=== PATIENT | female | born 1995 | race African-American/Black ===

== ENCOUNTER 2017-05-25 18:53 | Emergency (ER) | payer BC ==
[2017-05-25 19:02] VITALS: BMI 42.9
--- NOTE | 2017-05-25 19:47 | PDOC ---
History of Present Illness - History of Present Illness Initial Comments: 05/25/17 19:43 21F psh of migraines and 11month ago presents to the ED after [place] of headache[place] 1800 [place]. Now complains of minor frontal headache. No vertigo. no fever Not on any meds, was drinking water before event but notice increased thirst and micturition recently. 05/26/17 00:06 <Jair Guzmán - Last Filed: 05/26/17 00:32> <Artem Barron - Last Filed: 05/26/17 01:46> - General Chief Complaint: Headache Stated Complaint: LIGHTHEADED Time Seen by Provider: 05/25/17 19:29 Past History - Past Medical History Asthma: No Cancer: No Cardiac Disorders: No Diabetes: No HTN: No Suicide Attempt (Hx): No Seizures: No Thyroid Disease: No Other medical history: none - Reproductive History (#): 1 Para: 0 Cervical CA: No Dysfunctional Uterine Bleeding: No Ectopic : No Endometrial CA: No Polycystic Ovaries: No Therapeutic (s) & number: No Tubal Ligation: No Spontaneous : 0 - Immunization History Immunization Up to Date: Yes - Psycho/Social/Smoking Cessation Hx Anxiety: No Suicidal Ideation: No Smoking Status: No Smoking History: Never smoked Have you smoked in the past 12 months: No Number of Cigarettes Smoked Daily: 0 Information on smoking cessation initiated: No Hx Alcohol Use: No Drug/Substance Use Hx: No Substance Use Type: None Hx Substance Use Treatment: No <Jair Guzmán - Last Filed: 05/26/17 00:32> <Artem Barron - Last Filed: 05/26/17 01:46> - Past Medical History Allergies/Adverse Reactions: Allergies Allergy/AdvReac Type Severity Reaction Status Date / Time No Known Allergies Allergy Verified 11/15/16 14:14 Home Medications: Ambulatory Orders NK [No Known Home Medication] 05/25/17 *Physical Exam - Vital Signs Last Vital Signs Temp Pulse Resp BP Pulse Ox 98.4 F 75 18 123/90 98 05/25/17 19:00 05/25/17 19:00 05/25/17 19:00 05/25/17 19:00 05/25/17 19:00 <Jair Guzmán - Last Filed: 05/26/17 00:32> - Vital Signs Last Vital Signs Temp Pulse Resp BP Pulse Ox 98.1 F 70 17 122/74 98 05/26/17 00:41 05/26/17 00:41 05/26/17 00:41 05/26/17 00:41 05/26/17 00:41 <Artem Barron - Last Filed: 05/26/17 01:46> ED Treatment Course - LABORATORY CBC & Chemistry Diagram: 05/25/17 20:10 05/25/17 20:19 <Jair Guzmán - Last Filed: 05/26/17 00:32> - LABORATORY CBC & Chemistry Diagram: 05/25/17 20:10 05/25/17 20:19 - ADDITIONAL ORDERS Additional order review: Laboratory Results 05/25/17 05/25/17 05/25/17 20:56 20:19 20:19 Sodium 135 L Potassium 4.1 Chloride 105 Carbon Dioxide 23 Anion Gap 7 L BUN 12 Creatinine 0.7 Creat Clearance w eGFR > 60 Random Glucose 83 Calcium 9.0 Total Bilirubin 0.5 AST 13 L ALT 15 Alkaline Phosphatase 88 Total Protein 6.9 Albumin 3.4 Beta HCG, Quant 34630.1 Urine Color Urine Appearance Urine pH Ur Specific [place] Urine Protein Urine Glucose (UA) Urine Ketones Urine Blood Urine Nitrite Urine Bilirubin Urine Urobilinogen Ur Leukocyte Esterase Urine HCG, Qual Positive 05/25/17 20:10 Sodium Potassium Chloride Carbon Dioxide Anion Gap BUN Creatinine Creat Clearance w eGFR Random Glucose Calcium Total Bilirubin AST ALT Alkaline Phosphatase Total Protein Albumin Beta HCG, Quant Urine Color Ltyellow Urine Appearance Clear Urine pH 6.0 Ur Specific [place] 1.020 Urine Protein Negative Urine Glucose (UA) Negative Urine Ketones Negative Urine Blood Negative Urine Nitrite Negative Urine Bilirubin Negative Urine Urobilinogen 2.0 e.u/dl H Ur Leukocyte Esterase Negative Urine HCG, Qual 05/25/17 20:10 RBC 4.15 MCV 87.7 MCHC 33.2 RDW 13.6 MPV 7.6 Neutrophils % 59.8 D Lymphocytes % 32.0 D Monocytes % 6.1 Eosinophils % 1.7 Basophils % 0.4 - RADIOLOGY Radiology Studies Ordered: Category Date Time Status TRANSVAGINAL US PREG [US] Routine Ultrasound 05/25/17 Taken - Medications Given in the ED: ED Medications Discontinued Medications Generic Name Dose Route Start Last Admin Trade Name Freq PRN Reason Stop Dose Admin Acetaminophen 1,000 mg 05/25/17 20:42 05/25/17 20:56 Tylenol - PO 05/25/17 20:43 1,000 mg ONCE ONE Administration Sodium Chloride 1,000 mls @ 1,000 mls/hr 05/25/17 20:44 05/25/17 20:56 Normal Saline - IV 05/25/17 21:43 1,000 mls/hr ASDIR STA Administration <Artem Barron - Last Filed: 05/26/17 01:46> Medical Decision Making - Medical Decision Making 05/26/17 00:07 21F psh of migraines and 11month ago presents to the ED after episode of headache,[place] 1800 [place]. Differential: subarachnoid bleed, pseudotumor cerebri and migraines. 05/26/17 00:10 Patient was given tylenol for headache and 1L bolus and found to be 6w HR 168 by urine hcg, confirmed by B-HCG pelvis U/S then transvaginal u /s. 05/26/17 00:12 05/26/17 00:32 We do not suspect subarachnoid hemorrhage at this time. Patient told to follow up with Ophtalmology and neurology on saturday. multivitamin ordered. 05/26/17 00:34 <Jair Guzmán - Last Filed: 05/26/17 00:32> *DC/Admit/Observation/Transfer - Discharge Dispostion Admit: No <Jair Guzmán - Last Filed: 05/26/17 00:32> <Artem Barron - Last Filed: 05/26/17 01:46> Diagnosis at time of Disposition: Qualifiers: Weeks of gestation: less than 8 weeks Qualified Code(s): Z3A.01 - Less than 8 weeks gestation of Headache Qualifiers: Headache type: unspecified Headache chronicity pattern: episodic headache Intractability: not intractable Qualified Code(s): R51 - Headache - Discharge Dispostion Disposition: HOME Condition at time of disposition: Stable - Referrals Referrals: Mariusz Henderson MD [Staff Physician] - Jay Peacock MD [Staff Physician] - - Patient Instructions Printed Discharge Instructions: DI for Headache
[2017-05-25 20:27] LABS: URINE APPEARANCE CLEAR; URINE BILIRUBIN NEGATIVE (NEGATIVE); URINE BLOOD NEGATIVE (NEGATIVE); URINE COLOR LTYELLOW; URINE GLUCOSE (UA) NEGATIVE (NEGATIVE); URINE KETONE NEGATIVE (NEGATIVE); URINE LEUK ESTERASE NEGATIVE (NEGATIVE); URINE NITRITE NEGATIVE (NEGATIVE); URINE PROTEIN NEGATIVE (NEGATIVE); URINE UROBILINOGEN 2.0 E.U/dl E.U./dl (0.2-1.0)
[2017-05-25 20:28] LABS: BASOPHIL 0.4 % (0-2.0); EOSINOPHIL 1.7 % (0-4.5); MCH 29.1 pg (25.7-33.7); MCHC 33.2 g/dl (32.0-36.0); MEAN CELL VOLUME 87.7 fl (80-96); MEAN PLT VOLUME 7.6 fl (7.5-11.1); NEUTROPHILS 59.8 % (42.8-82.8); PLATELET COUNT 293 K/MM3 (134-434); RDW 13.6 % (11.6-15.6); WHITE BLOOD COUNT 7.4 K/mm3 (4.0-10.0)
[2017-05-25] MEDS ORDERED: ACETAMINOPHEN 500 MG TABLET (FP) PO ONE (20:42)
[2017-05-25] MEDS ORDERED: SODIUM CHLORIDE 1,000 ML IV STA (20:44)
[2017-05-25 20:49] LABS: ALBUMIN 3.4 g/dl (3.4-5.0); ALK PHOS 88 U/L (45-117); ANION GAP 7 (8-16); BILIRUBIN,TOTAL 0.5 mg/dL (0.2-1.0); CO2 23 mmol/L (21-32); CREATININE 0.7 mg/dL (0.55-1.02); GLUCOSE,RANDOM 83 mg/dL (74-106); SGOT/AST 13 U/L (15-37); SGPT/ALT 15 U/L (12-78); TOT PROT 6.9 g/dl (6.4-8.2)
[2017-05-25] MEDS ORDERED: ACETAMINOPHEN 500 MG TABLET (FP) ONE (20:51)
[2017-05-26 00:42] VITALS: BP 122/74; PULSE 70; TEMP 98.1
--- NOTE | 2017-05-26 01:41 | PDOC ---
Attending Attestation - Resident Resident Name: Jair Guzmán - ED Attending Attestation I have performed the following: I have examined & evaluated the patient, The case was reviewed & discussed with the resident, I agree w/resident's findings & plan, Exceptions are as noted - HPI HPI: 05/26/17 01:38 21-year-old female with history of migraines presents to the ER with a pressure- like headache for the past 7 days,, localized to the forehead and frontal sinuses, with intermittent blurry vision and lightheadedness on the day of arrival. Patient denies the current symptoms are worse headache of her life. She denies fever/chills/nausea/vomiting/focal weakness or paresthesias of extremities. Patient does not recall her last menstrual period. - Physicial Exam PE: 05/26/17 01:39 In the ER, patient is awake and alert, morbidly obese, in no distress. Serial neurological exams reveal no focal deficits. Evaluation of the optic disks reveal no papilledema. Cranial nerves II through XII are grossly intact; motor is 5 of 54; there is no pronation drift; gait is stable. - Medical Decision Making 05/26/17 01:39 Patient is a 21-year-old female who presents with a mild pressure-like frontal headache and lightheadedness as well as visual changes for the past week. In the ER, patient is without focal neurological deficits and normal funduscopic examination. I do not suspect subarachnoid hemorrhage at this time pseudotumor cerebri is in differential at this time. Patient did not wish to undergo lumbar puncture radiological evaluation the ER. Patient's noted to be UCG positive with a beta hCG of 14,000 and a transvaginal ultrasound revealing an IUP with a yolk sac consistent with 6 weeks gestation. Will discharge with neurology and ophthalmology follow-up further evaluation treatment as well as [employer] for further care.
--- NOTE | 2017-05-26 01:47 | PDOC ---
*Physical Exam - Vital Signs Last Vital Signs Temp Pulse Resp BP Pulse Ox 98.1 F 70 17 122/74 98 05/26/17 00:41 05/26/17 00:41 05/26/17 00:41 05/26/17 00:41 05/26/17 00:41 - Physical Exam General Appearance: Yes: Nourished, Mild Distress, Obese HEENT: positive: EOMI EDILSON ED Treatment Course - LABORATORY CBC & Chemistry Diagram: 05/25/17 20:10 05/25/17 20:19 - ADDITIONAL ORDERS Additional order review: Laboratory Results 05/25/17 05/25/17 05/25/17 20:56 20:19 20:19 Sodium 135 L Potassium 4.1 Chloride 105 Carbon Dioxide 23 Anion Gap 7 L BUN 12 Creatinine 0.7 Creat Clearance w eGFR > 60 Random Glucose 83 Calcium 9.0 Total Bilirubin 0.5 AST 13 L ALT 15 Alkaline Phosphatase 88 Total Protein 6.9 Albumin 3.4 Beta HCG, Quant 31572.1 Urine Color Urine Appearance Urine pH Ur Specific [place] Urine Protein Urine Glucose (UA) Urine Ketones Urine Blood Urine Nitrite Urine Bilirubin Urine Urobilinogen Ur Leukocyte Esterase Urine HCG, Qual Positive 05/25/17 20:10 Sodium Potassium Chloride Carbon Dioxide Anion Gap BUN Creatinine Creat Clearance w eGFR Random Glucose Calcium Total Bilirubin AST ALT Alkaline Phosphatase Total Protein Albumin Beta HCG, Quant Urine Color Ltyellow Urine Appearance Clear Urine pH 6.0 Ur Specific [place] 1.020 Urine Protein Negative Urine Glucose (UA) Negative Urine Ketones Negative Urine Blood Negative Urine Nitrite Negative Urine Bilirubin Negative Urine Urobilinogen 2.0 e.u/dl H Ur Leukocyte Esterase Negative Urine HCG, Qual 05/25/17 20:10 RBC 4.15 MCV 87.7 MCHC 33.2 RDW 13.6 MPV 7.6 Neutrophils % 59.8 D Lymphocytes % 32.0 D Monocytes % 6.1 Eosinophils % 1.7 Basophils % 0.4 - RADIOLOGY Radiology Studies Ordered: Category Date Time Status PELVIC / BLADDER US [US] Stat Ultrasound 05/25/17 20:41 Taken - Medications Given in the ED: ED Medications Discontinued Medications Generic Name Dose Route Start Last Admin Trade Name Freq PRN Reason Stop Dose Admin Acetaminophen 1,000 mg 05/25/17 20:42 05/25/17 20:56 Tylenol - PO 05/25/17 20:43 1,000 mg ONCE ONE Administration Sodium Chloride 1,000 mls @ 1,000 mls/hr 05/25/17 20:44 05/25/17 20:56 Normal Saline - IV 05/25/17 21:43 1,000 mls/hr ASDIR STA Administration *DC/Admit/Observation/Transfer Diagnosis at time of Disposition: Qualifiers: Weeks of gestation: less than 8 weeks Qualified Code(s): Z3A.01 - Less than 8 weeks gestation of Headache Qualifiers: Headache type: unspecified Headache chronicity pattern: episodic headache Intractability: not intractable Qualified Code(s): R51 - Headache - Discharge Dispostion Disposition: HOME Condition at time of disposition: Good - Referrals Referrals: Mariusz Henderson MD [Staff Physician] - Jay Peacock MD [Staff Physician] - - Patient Instructions Printed Discharge Instructions: DI for Headache - Post Discharge Activity
[2017-05-26] MEDS ORDERED: PRENATAL VITAMINS W/ FOLIC ACID TABLET (FP) PO SCH (10:00)
--- NOTE | 2017-05-27 13:49 | EKG ---
Test Reason : Blood Pressure : / mmHG Vent. Rate : 079 BPM Atrial Rate : 079 BPM P-R Int : 152 ms QRS Dur : 082 ms QT Int : 344 ms P-R-T Axes : 042 019 021 degrees QTc Int : 394 ms NORMAL SINUS RHYTHM NORMAL ECG WHEN COMPARED WITH ECG OF 02-OCT-2010 22:43, NO SIGNIFICANT CHANGE WAS FOUND Confirmed by RICHMOND GRANT MD ([id number]) on 05/27/2017 1:49:43 PM Referred By: Confirmed By:RICHMOND GRANT MD
== END 2017-05-26 01:45 | disposition home or self-care (01) ==
LOC: JER 18:53
PROC: 3E0337Z Introduction of Electrolytic and Water Balance Substance into Peripheral Vein, Percutaneous Approach (ICD-10-PCS; principal; 2017-05-25)
DX: O26.891 Other specified pregnancy related conditions, first trimester (principal); R51 Headache; Z3A.08 8 weeks gestation of pregnancy
CPT/HCPCS: 36415; 76817-TC; 76856-TC; 80053; 81003; 84702; 84703; 85025; 93005; 93010; 99285-25

== ENCOUNTER 2017-07-29 16:50 | Emergency (ER) | payer BC ==
[2017-07-29 16:56] VITALS: TEMP 98; BMI 41.1
--- NOTE | 2017-07-29 17:52 | PDOC ---
History of Present Illness - General Chief Complaint: Pain Stated Complaint: HEADACHE Time Seen by Provider: 07/29/17 17:51 Past History - Past Medical History Allergies/Adverse Reactions: Allergies Allergy/AdvReac Type Severity Reaction Status Date / Time No Known Allergies Allergy Verified 07/29/17 16:57 Home Medications: Ambulatory Orders NK [No Known Home Medication] 05/25/17 Asthma: No Cancer: No Cardiac Disorders: No Diabetes: No HTN: No Suicide Attempt (Hx): No Seizures: No Thyroid Disease: No - Reproductive History Is Patient Now?: Yes (#): 2 Para: 1 Cervical CA: No Dysfunctional Uterine Bleeding: No Ectopic : No Endometrial CA: No Polycystic Ovaries: No Therapeutic (s) & number: No Tubal Ligation: No Spontaneous : 0 - Immunization History Immunization Up to Date: Yes - Psycho/Social/Smoking Cessation Hx Anxiety: No Suicidal Ideation: No Smoking Status: No Smoking History: Never smoked Have you smoked in the past 12 months: No Number of Cigarettes Smoked Daily: 0 Information on smoking cessation initiated: No Hx Alcohol Use: No Drug/Substance Use Hx: No Substance Use Type: None Hx Substance Use Treatment: No *Physical Exam - Vital Signs Last Vital Signs Temp Pulse Resp BP Pulse Ox 98 F 108 H 18 123/89 99 07/29/17 16:51 07/29/17 16:51 07/29/17 16:51 07/29/17 16:51 07/29/17 16:51
[2017-07-29 17:55] LABS: URINE APPEARANCE CLEAR; URINE BILIRUBIN NEGATIVE (NEGATIVE); URINE BLOOD NEGATIVE (NEGATIVE); URINE COLOR LT. YELLOW; URINE GLUCOSE (UA) NEGATIVE (NEGATIVE); URINE KETONE TRACE (NEGATIVE); URINE NITRITE NEGATIVE (NEGATIVE); URINE UROBILINOGEN 4.0 E.U/dl mg/dL (0.2-1.0)
[2017-07-29 17:57] LABS: BASOPHIL 0.7 % (0-2.0); EOSINOPHIL 2.7 % (0-4.5); MCH 30.2 pg (25.7-33.7); MEAN CELL VOLUME 88.8 fl (80-96); MEAN PLT VOLUME 7.5 fl (7.5-11.1); NEUTROPHILS 63.5 % (42.8-82.8); PLATELET COUNT 282 K/MM3 (134-434); RDW 13.5 % (11.6-15.6); WHITE BLOOD COUNT 5.8 K/mm3 (4.0-10.0)
[2017-07-29 18:14] LABS: URINE PROTEIN 1+ (NEGATIVE)
[2017-07-29 18:22] LABS: URINE BACTERIA RARE /hpf (NONE SEEN); URINE MUCUS FEW; URINE RBC 3 /hpf (0-3); URINE WBC 6 /hpf (3-5); YEAST RARE
[2017-07-29 18:26] LABS: ANION GAP 10 (8-16); BILIRUBIN,TOTAL 0.4 mg/dL (0.2-1.0); CALCIUM 8.6 mg/dL (8.5-10.1); CO2 23 mmol/L (21-32); CREATININE 0.5 mg/dL (0.55-1.02); GLUCOSE,RANDOM 84 mg/dL (74-106); SGOT/AST 12 U/L (15-37); SGPT/ALT 18 U/L (12-78); TOT PROT 6.6 g/dl (6.4-8.2)
[2017-07-29 18:41] LABS: ALK PHOS 70 U/L (45-117)
[2017-07-29] MEDS ORDERED: SODIUM CHLORIDE 1,000 ML IV STA (19:38)
--- NOTE | 2017-07-29 20:06 | PDOC ---
History of Present Illness - General Chief Complaint: Pain Stated Complaint: HEADACHE Time Seen by Provider: 07/29/17 17:51 History Source: Patient - History of Present Illness Initial Comments: 07/29/17 19:39 22-year-old female complaining of suprapubic pain for 3 days and headache for several days. Patient currently . LMP the 03/2017. Patient denies vaginal bleeding, vaginal discharge, urinary symptoms, flank pain. Patient reports drinking inadequate amount of water at times due to the busy work and family life. Patient denies nausea vomiting diarrhea, fever, chest pain, vision changes discussed Past History - Past Medical History Allergies/Adverse Reactions: Allergies Allergy/AdvReac Type Severity Reaction Status Date / Time No Known Allergies Allergy Verified 07/29/17 16:57 Home Medications: Ambulatory Orders Amoxicillin - [Amoxicillin 875mg Tablet -] 875 mg PO BID #20 tab 07/29/17 Vit Calc,Iron,Folic [ Vitamins] 1 each PO DAILY #60 tablet 10/04 Asthma: No Cancer: No Cardiac Disorders: No Diabetes: No HTN: No Suicide Attempt (Hx): No Seizures: No Thyroid Disease: No - Surgical History Other Surgical History: 07/29/17 20:06 1 year ago - Reproductive History Is Patient Now?: Yes (#): 2 Para: 1 Cervical CA: No Dysfunctional Uterine Bleeding: No Ectopic : No Endometrial CA: No Polycystic Ovaries: No Therapeutic (s) & number: No Tubal Ligation: No Spontaneous : 0 - Immunization History Immunization Up to Date: Yes - Psycho/Social/Smoking Cessation Hx Anxiety: No Suicidal Ideation: No Smoking Status: No Smoking History: Never smoked Have you smoked in the past 12 months: No Number of Cigarettes Smoked Daily: 0 Information on smoking cessation initiated: No Hx Alcohol Use: No Drug/Substance Use Hx: No Substance Use Type: None Hx Substance Use Treatment: No Review of Systems - Review of Systems Able to Perform ROS?: Yes Is the patient limited Lao proficient: No Constitutional: No: Symptoms Reported, See HPI, Chills, Diaphoresis, Fever, Loss of Appetite, Malaise, Night Sweats, Weakness, Weight Stable, Unintentional Wgt. Loss, Unexplained wgt Loss, Other ABD/GI: Yes: Other (suprapubic pain) : No: Symptoms Reported, See HPI, Burning, Dysuria, Discharge, Frequency (ip fracture), Flank Pain, Hematuria, Incontinence, Pain, Urgency, Testicular Mass, Testicular Swelling, Lesions, Testicular Pain, Other Neurological: Yes: Headache (. Leg) *Physical Exam - Vital Signs Last Vital Signs Temp Pulse Resp BP Pulse Ox 98 F 108 H 18 123/89 99 07/29/17 16:51 07/29/17 16:51 07/29/17 16:51 07/29/17 16:51 07/29/17 16:51 - Physical Exam General Appearance: Yes: Appropriately Dressed Respiratory/Chest: positive: Lungs Clear, Normal Breath Sounds Cardiovascular: positive: Regular Rhythm, Regular Rate Female Pelvic Exam: positive: normal external exam Gastrointestinal/Abdominal: positive: Normal Bowel Sounds, Soft, Other ( suprapubic tenderness) Musculoskeletal: positive: Normal Inspection Extremity: positive: Normal Capillary Refill, Normal Inspection, Normal Range of Motion Integumentary: positive: Normal Color, Dry, Warm Neurologic: positive: Fully Oriented, Alert, Normal Mood/Affect ED Treatment Course - LABORATORY CBC & Chemistry Diagram: 07/29/17 17:46 07/29/17 17:46 - ADDITIONAL ORDERS Additional order review: Laboratory Results 07/29/17 07/29/17 17:46 17:46 Sodium 137 Potassium 3.9 Chloride 104 Carbon Dioxide 23 Anion Gap 10 BUN 9 D Creatinine 0.5 L D Creat Clearance w eGFR > 60 Random Glucose 84 Calcium 8.6 Total Bilirubin 0.4 AST 12 L ALT 18 Alkaline Phosphatase 70 D Total Protein 6.6 Albumin 3.0 L Lipase 135 Beta HCG, Quant 46829.1 Urine Color Lt. yellow Urine Appearance Clear Urine pH 7.0 Urine Protein 1+ H Urine Glucose (UA) Negative Urine Ketones Trace H Urine Blood Negative Urine Nitrite Negative Urine Bilirubin Negative Urine Urobilinogen 4.0 e.u/dl H Urine RBC 3 Urine WBC 6 Ur Epithelial Cells Many Urine Bacteria Rare Urine Mucus Few Urine Yeast Rare 07/29/17 17:46 RBC 3.75 MCV 88.8 MCHC 34.0 RDW 13.5 MPV 7.5 Neutrophils % 63.5 Lymphocytes % 27.1 Monocytes % 6.0 Eosinophils % 2.7 Basophils % 0.7 - RADIOLOGY Radiology Studies Ordered: Category Date Time Status TRANSVAGINAL US PREG [US] Stat Ultrasound 07/29/17 19:35 Ordered Radiograph Interpretation: 07/29/17 21:00 Transvaginal US: +IUP 16 weeks HRT 161 Medical Decision Making - Medical Decision Making A: 16 weeks IUP; UTI P: CBC CMP beta hcg transvaginal u/s UA UCX *DC/Admit/Observation/Transfer Diagnosis at time of Disposition: Urinary tract infection Qualifiers: Urinary tract infection type: acute cystitis Hematuria presence: without hematuria Qualified Code(s): N30.00 - Acute cystitis without hematuria Qualifiers: Weeks of gestation: 16 weeks Qualified Code(s): Z3A.16 - 16 weeks gestation of - Discharge Dispostion Disposition: HOME - Prescriptions Prescriptions: Amoxicillin - [Amoxicillin 875mg Tablet -] 875 mg PO BID #20 tab Vit Calc,Iron,Folic [ Vitamins] 1 each PO DAILY #60 tablet - Referrals Referrals: Jasbir Hanley MD [Primary Care Provider] - - Patient Instructions Printed Discharge Instructions: Managing Symptoms of Additional Instructions: take vitamins as prescribed. take amoxicillin as prescribed. drink plenty of fluids follow up with Dr. monsivais as soon as possible. - Post Discharge Activity Work/School Note: Back to Work
[2017-07-29 21:22] VITALS: BP 100/65; PULSE 95
== END 2017-07-29 21:22 | disposition home or self-care (01) ==
LOC: JER 16:50
PROC: 3E0337Z Introduction of Electrolytic and Water Balance Substance into Peripheral Vein, Percutaneous Approach (ICD-10-PCS; principal; 2017-07-29)
DX: O23.42 Unspecified infection of urinary tract in pregnancy, second trimester (principal); Z3A.16 16 weeks gestation of pregnancy
CPT/HCPCS: 36415; 76815-TC; 80053; 81003; 81015; 83690; 84702; 85025; 87086; 99283-25

== ENCOUNTER 2017-09-30 14:12 | Emergency (ER) | payer BC ==
[2017-09-30 14:25] VITALS: BP 136/71; PULSE 100; TEMP 98; BMI 44.6
--- NOTE | 2017-09-30 15:26 | PDOC ---
History of Present Illness - General Chief Complaint: Pain Stated Complaint: PAIN (28 WKS ) Time Seen by Provider: 09/30/17 14:55 History Source: Patient Exam Limitations: No Limitations - History of Present Illness Initial Comments: 09/30/17 15:27 22 yr female history of carpal tunnel right wrist worse the past 2 weeks . Pt is 7 months . 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 Past History - Past Medical History Allergies/Adverse Reactions: Allergies Allergy/AdvReac Type Severity Reaction Status Date / Time No Known Allergies Allergy Verified 09/30/17 14:18 Home Medications: Ambulatory Orders Vit Calc,Iron,Folic [ Vitamins] 1 each PO DAILY #60 tablet 10/04 Asthma: No Cancer: No Cardiac Disorders: No COPD: No Diabetes: No HTN: No Seizures: No Thyroid Disease: No Other medical history: CARPAL TUNNEL - Reproductive History (#): 2 Para: 1 Cervical CA: No Dysfunctional Uterine Bleeding: No Ectopic : No Endometrial CA: No Polycystic Ovaries: No Therapeutic (s) & number: No Tubal Ligation: No Spontaneous : 0 - Immunization History Immunization Up to Date: Yes - Suicide/Smoking/Psychosocial Hx Smoking Status: No Smoking History: Never smoked Have you smoked in the past 12 months: No Number of Cigarettes Smoked Daily: 0 Information on smoking cessation initiated: No Hx Alcohol Use: No Drug/Substance Use Hx: No Substance Use Type: None Hx Substance Use Treatment: No *Physical Exam - Vital Signs Last Vital Signs Temp Pulse Resp BP Pulse Ox 98.0 F 100 H 18 136/71 100 09/30/17 14:18 09/30/17 14:18 09/30/17 14:18 09/30/17 14:18 09/30/17 14:18 - Physical Exam General Appearance: Yes: Nourished, Appropriately Dressed HEENT: positive: EOMI, EDILSON Neck: negative: Tender Respiratory/Chest: positive: Lungs Clear, Normal Breath Sounds Cardiovascular: positive: Regular Rhythm, Regular Rate Musculoskeletal: positive: Normal Inspection Extremity: positive: Normal Capillary Refill, Normal Inspection, Normal Range of Motion Integumentary: positive: Normal Color, Dry, Warm Neurologic: positive: Fully Oriented, Alert, Normal Mood/Affect, Normal Response Medical Decision Making - Medical Decision Making 11/13/17 15:28 cc: right wrist pain worse at night has known carpal tunnel syndrome will refer to the orthopedist for follow up I have discussed that pt should try the carpal tunnel splints at bedtime, hand is swollen , FROM nv intact right hand dominant cap refill intact pt agrees with the plan of care all questions asked and answered. *DC/Admit/Observation/Transfer Diagnosis at time of Disposition: Carpal tunnel syndrome during - Discharge Dispostion Disposition: HOME Condition at time of disposition: Good - Referrals Referrals: Jasbir Hanley MD [Primary Care Provider] - Mich Costa MD [Staff Physician] - - Patient Instructions Additional Instructions: follow with the orthopedist listed below is the wrist and hand specialist use the carpal splints at bedtime this can help with your pain , make sure it says CARPAL SPLINT - Post Discharge Activity
== END 2017-09-30 15:28 | disposition home or self-care (01) ==
LOC: JER 14:12 → JERFT 14:12
DX: O99.89 Other specified diseases and conditions complicating pregnancy, childbirth and the puerperium (principal); G56.01 Carpal tunnel syndrome, right upper limb; Z3A.28 28 weeks gestation of pregnancy
CPT/HCPCS: 99281-25

== ENCOUNTER 2019-07-16 19:57 | Emergency (ER) | payer BC ==
[2019-07-16] MEDS ORDERED: ONDANSETRON *ODT* 4 MG TABLET SL ONE (20:04)
[2019-07-16] MEDS ORDERED: MAG HYDROX/AL HYDROX/SIMETH 30 ML UNIT-DOSE CUP PO ONE (20:04)
--- NOTE | 2019-07-16 20:05 | PDOC ---
Rapid Medical Evaluation Chief Complaint: Pain Time Seen by Provider: 07/16/19 19:58 Medical Evaluation: Allergies Allergy/AdvReac Type Severity Reaction Status Date / Time No Known Allergies Allergy Verified 07/16/19 20:00 07/16/19 20:01 23 year old nausea, vomiting and diarrhea since yesterday. c/o generalized abdominal pain. reports symptoms worse as per patient Pe: patient alert ox3. A: gastroenteritis? P; tim quach patient to the ER further management of care. Discharge Disposition - Diagnosis Nausea vomiting and diarrhea - Referrals - Patient Instructions - Post Discharge Activity
[2019-07-16 20:11] VITALS: BMI 47.8
--- NOTE | 2019-07-16 20:54 | PDOC ---
History of Present Illness - General Chief Complaint: Pain Stated Complaint: ABD PAIN Time Seen by Provider: 07/16/19 19:58 - History of Present Illness Initial Comments: 07/16/19 21:08 23 year old woman with no pmhx who presents with 2 days of nb emesis and diarrhes associated with epigastric pain and a low grade temp of 100.5F last night. She reports that her daughter had similar symptoms 2-3 days ago and is in daycare with other children. She admits to some burning in the chest from the stomach and current nausea but denies any shortness of breath, lightheadedness, blood in vomit or stool, dysuria or hematuria. She has no other complaints at bedside. ROS GENERAL/CONSTITUTIONAL: No fever or chills. No weakness. HEAD, EYES, EARS, NOSE AND THROAT: No change in vision. No ear pain or discharge. No sore throat. CARDIOVASCULAR: No chest pain or shortness of breath RESPIRATORY: No cough, wheezing, or hemoptysis. GASTROINTESTINAL: No nausea, vomiting, diarrhea or constipation. GENITOURINARY: No dysuria, frequency, or change in urination. MUSCULOSKELETAL: No joint or muscle swelling or pain. No neck or back pain. SKIN: No rash NEUROLOGIC: No headache, vertigo, loss of consciousness, or change in strength/ sensation. PE GENERAL: Awake, alert, and fully oriented, in no acute distress HEAD: No signs of trauma, normocephalic, atraumatic EYES: EOMI, sclera anicteric, conjunctiva clear ENT: oropharynx clear without exudates. Moist mucosa NECK: Normal ROM, supple LUNGS: No distress, speaks full sentences, clear to auscultation bilaterally HEART: Regular rate and rhythm, normal S1 and S2, no murmurs, rubs or gallops, peripheral pulses normal and equal bilaterally. ABDOMEN: Soft, +epigastric tenderness. No guarding, no rebound. No masses EXTREMITIES : Normal inspection, Normal range of motion, no edema. No clubbing or cyanosis. NEUROLOGICAL: Cranial nerves II through XII grossly intact. Normal speech, no focal sensorimotor deficits SKIN: Warm, Dry, normal turgor, no rashes or lesions noted MDM DDX including but not limited to: W/U: - TX: - Scores: ED Course: Patient stable for discharge. Informed of all lab and imaging results. Given follow up instructions and strict return precautions. Patient expressed understanding and agree to plan. Creative Producer #: Toshia Miles PGY2 Emergency Medicine 07/16/19 21:14 Past History - Past Medical History Allergies/Adverse Reactions: Allergies Allergy/AdvReac Type Severity Reaction Status Date / Time No Known Allergies Allergy Verified 07/16/19 20:00 Home Medications: Ambulatory Orders Vit Calc,Iron,Folic [ Vitamins] 1 each PO DAILY #60 tablet 10/04 Ibuprofen [Motrin -] 600 mg PO QID #28 tablet 01/10/18 Asthma: No Cancer: No Cardiac Disorders: No COPD: No Diabetes: No HTN: No Seizures: No Thyroid Disease: No - Reproductive History (#): 2 Para: 1 Cervical CA: No Dysfunctional Uterine Bleeding: No Ectopic : No Endometrial CA: No Polycystic Ovaries: No Therapeutic (s) & number: No Tubal Ligation: No Spontaneous : 0 - Immunization History Immunization Up to Date: Yes - Suicide/Smoking/Psychosocial Hx Smoking Status: No Smoking History: Never smoked Have you smoked in the past 12 months: No Number of Cigarettes Smoked Daily: 0 Hx Alcohol Use: No Drug/Substance Use Hx: No Substance Use Type: None Hx Substance Use Treatment: No *Physical Exam - Vital Signs Last Vital Signs Temp Pulse Resp BP Pulse Ox 99.6 F 92 H 17 135/75 97 07/16/19 20:01 07/16/19 20:01 07/16/19 20:01 07/16/19 20:01 07/16/19 20:01 *DC/Admit/Observation/Transfer Diagnosis at time of Disposition: Nausea vomiting and diarrhea - Referrals Referrals: Jasbir Hanley MD [Primary Care Provider] - - Patient Instructions - Post Discharge Activity
[2019-07-16] MEDS ORDERED: MAG HYDROX/AL HYDROX/SIMETH 30 ML UNIT-DOSE CUP ONE (20:57)
[2019-07-16] MEDS ORDERED: ONDANSETRON *ODT* 4 MG TABLET ONE (20:57)
[2019-07-16] MEDS ORDERED: ACETAMINOPHEN 1000 MG/100 ML VIAL (NON FORMULARY) IVPB ONE (21:07)
[2019-07-16] MEDS ORDERED: ONDANSETRON 4 MG/2 ML VIAL IVPUSH ONE (21:14)
[2019-07-16] MEDS ORDERED: SODIUM CHLORIDE 1,000 ML IV SCH (21:15)
[2019-07-16] MEDS ORDERED: FAMOTIDINE 20 MG/50 ML IVPB 20 MG/50 ML MG IVPB ONE ×2 (21:30→21:54)
[2019-07-16] MEDS ORDERED: SUCRALFATE 1 GM/10 ML UNIT DOSE CUPS PO ONE (21:30)
[2019-07-16 21:32] VITALS: PULSE 107
[2019-07-16 21:45] LABS: URINE COLOR YELLOW
[2019-07-16 21:48] LABS: EPI CELLS >36 /HPF (0-5/HPF); PH,URINE 5.5 (5.0-8.0); URINE BACTERIA 0 /hpf (NEGATIVE); URINE BILIRUBIN NEGATIVE (NEGATIVE); URINE GLUCOSE (UA) NEGATIVE (NEGATIVE); URINE KETONE TRACE (NEGATIVE); URINE LEUK ESTERASE 2+ (NEGATIVE); URINE NITRITE NEGATIVE (NEGATIVE); URINE PROTEIN TRACE (NEGATIVE); URINE RBC 5 /hpf (0-4); URINE WBC 90 /hpf (0-5)
[2019-07-16 21:51] LABS: URINE APPEARANCE CLEAR
[2019-07-16] MEDS ORDERED: ACETAMINOPHEN INJECTION 100 ML IVPB ONE (21:54)
--- NOTE | 2019-07-16 22:07 | PDOC ---
Documentation entered by Gabo Gaines SCRIBE, acting as scribe for Pipe Rosario MD. Pipe Rosario MD: This documentation has been prepared by the Liana day Xhesika, SCRIBE, under my direction and personally reviewed by me in its entirety. I confirm that the documentation accurately reflects all work, treatment, procedures, and medical decision making performed by me. Attending Attestation - Resident Resident Name: Toshia Miles - ED Attending Attestation I have performed the following: I have examined & evaluated the patient, The case was reviewed & discussed with the resident, I agree w/resident's findings & plan, Exceptions are as noted - HPI HPI: 07/16/19 21:59 The patient is a year old female with no significant PMH of who presents to the emergency department with 2 days of vomiting and diarrhea. Patient states her symptoms are associated with epigastric pain, fever (100.5) and nausea. Patient states her daughter is in daycare and had similar symptoms 3 days go. The patient denies chest pain, shortness of breath, headache and dizziness. Denies chills, cough, and constipation. Denies dysuria, frequency, urgency and hematuria. Allergies: NKDA - Physicial Exam PE: 07/17/19 00:19 Agree with exam as documented by resident - Medical Decision Making 07/17/19 00:20 N/V/D +f/c in context of sick contact Likely viral AGE Abd tenderness likely 2/2 retching, less concern for acute abdomen Consider dehydration/electrolyte abnormality from acute fluid loss f/u labs ivf hydration symptomatic tx dispo per clinical course Symptomatic improvement, labs normal DC home
[2019-07-16 22:20] LABS: HYALINE CASTS 8 /lpf (0-8)
[2019-07-16 23:58] LABS: BASO % 0.1 % (0-2.0); HEMATOCRIT 42.5 % (32.4-45.2); HEMOGLOBIN 13.9 GM/dL (10.7-15.3); LYMPH % 5.9 % (8-40); MCH 29.4 pg (25.7-33.7); MCHC 32.7 g/dl (32.0-36.0); MEAN CELL VOLUME 89.9 fl (80-96); MEAN PLT VOLUME 7.1 fl (7.5-11.1); MONO % 1.5 % (3.8-10.2); NEUT % 92.5 % (42.8-82.8); PLATELET COUNT 295 K/MM3 (134-434); RBC 4.73 M/mm3 (3.60-5.2); WHITE BLOOD COUNT 7.3 K/mm3 (4.0-10.0)
[2019-07-17 00:27] LABS: ALBUMIN 3.7 g/dl (3.4-5.0); CREATININE 0.9 mg/dL (0.55-1.3); POTASSIUM 4.2 mmol/L (3.5-5.1); TOT PROT 7.6 g/dl (6.4-8.2)
[2019-07-17 02:00] VITALS: BP 99/51; TEMP 99.7
== END 2019-07-17 02:50 | disposition home or self-care (01) ==
LOC: JER 19:57
PROC: 3E033GC Introduction of Other Therapeutic Substance into Peripheral Vein, Percutaneous Approach (ICD-10-PCS; principal; 2019-07-16)
PROC: 3E033NZ Introduction of Analgesics, Hypnotics, Sedatives into Peripheral Vein, Percutaneous Approach (ICD-10-PCS; 2019-07-16)
DX: K52.9 Noninfective gastroenteritis and colitis, unspecified (principal)
CPT/HCPCS: 36415; 80053; 81003; 83690; 84703; 85025; 99283-25; J0131; J7030; Q0162

== ENCOUNTER 2023-01-25 14:20 | Emergency (ER) | payer BC, OTHER ==
[2023-01-25 14:45] VITALS: BP 147/77; TEMP 98.6; BMI 48.4
[2023-01-25] MEDS ORDERED: DEXAMETHASONE 4 MG TABLET (FP) PO ONE (15:05)
[2023-01-25] MEDS ORDERED: DEXAMETHASONE SOD PHOSPHATE 10 MG/1 ML VIAL ONE (15:09)
[2023-01-25] MEDS ORDERED: ACETAMINOPHEN 500 MG TABLET (FP) PO ONE (15:17)
[2023-01-25] MEDS ORDERED: ACETAMINOPHEN 325 MG TABLET (FP) ONE (15:18)
[2023-01-25] MEDS ORDERED: BENZOCAINE/MENTH/CETYLPYRD CL 1 EACH LOZENGE MM ONE ×2 (16:23→16:25)
[2023-01-25 16:35] VITALS: PULSE 95; RESP 20
== END 2023-01-25 16:51 | disposition home or self-care (01) ==
LOC: JERFT 14:20
DX: R07.0 Pain in throat (principal); R09.81 Nasal congestion
CPT/HCPCS: 0241U-QW; 99283-25

== ENCOUNTER 2025-08-31 09:42 | Emergency (ER) | payer OTHER ==
[2025-08-31 09:50] VITALS: BP 108/72; PULSE 92; RESP 18; TEMP 98.2; BMI 54.7
[2025-08-31] MEDS ORDERED: METOCLOPRAMIDE HCL INJECTION 10 MG/2 ML VIAL ONE (10:23)
[2025-08-31] MEDS ORDERED: ACETAMINOPHEN 500 MG TABLET (FP) ONE (10:30)
[2025-08-31] MEDS: METOCLOPRAMIDE HCL INJECTION 10 MG/2 ML VIAL IVPUSH ONE (10:42)
[2025-08-31] MEDS: SODIUM CHLORIDE 0.9% 500 ML INFUS.BAG IV ONE (10:42)
[2025-08-31] MEDS: ACETAMINOPHEN 500 MG TABLET (FP) PO ONE (10:43)
== END 2025-08-31 12:06 | disposition home or self-care (01) ==
LOC: JER 09:42
PROC: 3E033GC Introduction of Other Therapeutic Substance into Peripheral Vein, Percutaneous Approach (ICD-10-PCS; principal; 2025-08-31)
DX: R51.9 Headache, unspecified (principal)
CPT/HCPCS: 96374; 99284-25